=== PATIENT | female | born 1935 | race African-American/Black ===

== ENCOUNTER 2018-11-24 01:57 | Emergency (ER) | payer MEDICARE ==
[~2018-11-24] VITALS: Ht 152.4 cm; Wt 76.8 kg
[2018-11-24] MEDS ORDERED: SITA100 PO (02:23)
[2018-11-24] MEDS ORDERED: RIVA15T PO (02:23)
[2018-11-24] MEDS ORDERED: METO50 PO (02:23)
[2018-11-24] MEDS ORDERED: POTA10TA PO (02:23)
[2018-11-24] MEDS ORDERED: ALLO100T PO (02:23)
[2018-11-24] MEDS ORDERED: CALC25 PO (02:23)
[2018-11-24 02:54] VITALS: BP 115/43
[2018-11-24 03:16] LABS: GLUCOSE,POINT OF CARE 128 MG/DL (70-110)
[2018-11-24] MEDS ORDERED: DiphenhydrAMINE HCL 25 MG CAPSULE PO ONE (03:45)
== END 2018-11-24 03:55 | disposition home or self-care (01) ==
LOC: EMS 02:01
DX: L29.9 Pruritus, unspecified (principal); E11.9 Type 2 diabetes mellitus without complications; I10 Essential (primary) hypertension